=== PATIENT | female | born 1965 | race Caucasian/White ===

== ENCOUNTER 2018-09-05 00:37 | Emergency (ER) | payer SELFPAY ==
[~2018-09-05] VITALS: Ht 170.2 cm; Wt 54.1 kg
[2018-09-05] MEDS: KETOROLAC TROMETHAMINE 30 MG/ML VIAL IM ONE (01:24)
[2018-09-05] MEDS: LIDOCAINE 5% TRANSDERMAL PATCH TD ONE (01:25)
[2018-09-05 03:04] VITALS: BP 123/74
[2018-09-05] MEDS ORDERED: htn PO (10:39)
[2018-09-05 13:39] LABS: AMPHET/METH SCREEN,URINE POSITIVE (NEGATIVE); BARBITURATE SCREEN, URINE NEGATIVE (NEGATIVE); BENZODIAZEPINES SCREEN,URINE NEGATIVE (NEGATIVE); CANNABINOID SCREEN,URINE POSITIVE (NEGATIVE); COCAINE SCREEN,URINE NEGATIVE (NEGATIVE); METHADONE SCREEN, URINE NEGATIVE (NEGATIVE); OPIATE SCREEN,URINE NEGATIVE (NEGATIVE)
[2018-09-05 13:41] LABS: PHENCYCLIDINE SCREEN,URINE NEGATIVE (NEGATIVE)
[2018-09-05 13:43] LABS: APPEARANCE,URINE CLEAR (CLEAR); BILIRUBIN,URINE NEGATIVE (NEGATIVE); GLUCOSE, URINE (UA) NEGATIVE (NEGATIVE); KETONES,URINE NEGATIVE (NEGATIVE); LEUKOCYTE ESTERASE ,URINE NEGATIVE (NEGATIVE); NITRATE,URINE NEGATIVE (NEGATIVE); OCCULT BLOOD,URINE NEGATIVE (NEGATIVE); PH,URINE 6.5 (5.0-8.0); PROTEIN,URINE NEGATIVE (NEGATIVE); UROBILINOGEN,URINE 0.2 mg/dL (<=1.0)
[2018-09-05 13:47] LABS: BACTERIA,URINE None Seen /HPF (None Seen); RBC,URINE None Seen /HPF (0-2); SQUAMOUS EPITHELIAL CELL,UR Few /LPF (None Seen); WBC,URINE 0-2 /HPF (0-5)
== END 2018-09-05 03:56 | disposition home or self-care (01) ==
LOC: EMS 00:39
DX: G89.29 Other chronic pain (principal); M54.5 Low back pain; R21 Rash and other nonspecific skin eruption; F17.210 Nicotine dependence, cigarettes, uncomplicated; Z59.0 Homelessness
CPT/HCPCS: 80307; 81001; 84703; 96372; 99283; J1885

== ENCOUNTER 2018-09-05 10:33 | Emergency (ER) | payer SELFPAY ==
[~2018-09-05] VITALS: Ht 154.9 cm; Wt 54.5 kg
[2018-09-05] MEDS ORDERED: htn PO (10:39)
[2018-09-05 13:16] LABS: BASOPHILS % (AUTO) 1.2 % (0.0-2.0); EOSINOPHILS % (AUTO) 1.7 % (1.0-6.0); HEMATOCRIT 38.6 % (36-46); HEMOGLOBIN 12.9 g/dL (12.0-16.0); LYMPHOCYTES # (AUTO) 2.2 K/uL (1.0-4.8); LYMPHOCYTES % (AUTO) 26.8 % (22.0-44.0); MEAN CORPUSCULAR HEMOGLOBIN 32.1 pg (26.0-34.0); MEAN CORPUSCULAR HGB CONC 33.3 G/dL (31.0-37.0); MEAN CORPUSCULAR VOLUME 96 fL (80-100); MONOCYTES # (AUTO) 0.5 K/uL (0.1-1.0); MONOCYTES % (AUTO) 6.2 % (2.0-9.0); NEUTROPHILS # (AUTO) 5.4 K/uL (1.8-7.7); NEUTROPHILS % (AUTO) 64.1 % (40.0-70.0); PLATELET COUNT (AUTO) 409 K/uL (150-450); RED CELL DISTRIBUTION WIDTH 13.1 % (11.5-14.5)
[2018-09-05 13:24] LABS: ANION GAP 9 mmol/L (8-16); CALCIUM, TOTAL 8.9 mg/dL (8.8-10.5); CARBON DIOXIDE 25 mmol/L (22-29); CHLORIDE 103 mmol/L (98-107); CREATININE 0.53 mg/dL (0.60-1.30); GLOMERULAR FILTR. RATE CALC > 60 mL/min (>60); GLUCOSE,RANDOM 80 mg/dL (70-110); POTASSIUM 3.9 mmol/L (3.5-5.1); SODIUM SERUM 137 mmol/L (136-145); UREA NITROGEN, BLOOD 17 mg/dL (7-18)
[2018-09-05 13:31] LABS: ALANINE AMINOTRANSFERASE 26 U/L (12-78); ALBUMIN 3.7 g/dL (3.4-5.0); ALKALINE PHOSPHATASE 78 U/L (46-116); ASPARTATE AMINOTRANSFERASE 21 U/L (15-37); BILIRUBIN,TOTAL 0.2 mg/dL (0.1-1.0); LIPASE 173 U/L (73-393)
[2018-09-05] MEDS: PROMETHAZINE HCL 25 MG TABLET PO ONE (14:50)
[2018-09-05] MEDS: HALOPERIDOL LACTATE 5 MG/ML VIAL IM ONE (16:01)
[2018-09-05 17:25] VITALS: BP 138/90
== END 2018-09-05 17:30 | disposition home or self-care (01) ==
LOC: EMS 10:34
DX: R11.0 Nausea (principal); F31.9 Bipolar disorder, unspecified; F12.10 Cannabis abuse, uncomplicated; F17.210 Nicotine dependence, cigarettes, uncomplicated; Z88.0 Allergy status to penicillin; Z88.1 Allergy status to other antibiotic agents; Z88.5 Allergy status to narcotic agent; Z88.8 Allergy status to other drugs, medicaments and biological substances; Z59.0 Homelessness
CPT/HCPCS: 36415; 80053; 83690; 84484; 85025; 93005; 99284; 99406; J1630

== ENCOUNTER 2018-09-25 22:50 | Inpatient (IN) | payer BC, MEDICAID ==
[~2018-09-25] VITALS: Ht 157.5 cm; Wt 54.5 kg
[~2018-09-25 22:50] MED LIST: htn PO
[2018-09-26 02:17] LABS: AMPHET/METH SCREEN,URINE NEGATIVE (NEGATIVE); BARBITURATE SCREEN, URINE NEGATIVE (NEGATIVE); BENZODIAZEPINES SCREEN,URINE NEGATIVE (NEGATIVE); CANNABINOID SCREEN,URINE POSITIVE (NEGATIVE); COCAINE SCREEN,URINE NEGATIVE (NEGATIVE); METHADONE SCREEN, URINE NEGATIVE (NEGATIVE); OPIATE SCREEN,URINE NEGATIVE (NEGATIVE)
[2018-09-26 02:24] LABS: PHENCYCLIDINE SCREEN,URINE NEGATIVE (NEGATIVE)
[2018-09-26] MEDS ORDERED: KETOROLAC TROMETHAMINE 60 MG/2 ML VIAL IM ONE (04:45)
[2018-09-26] MEDS ORDERED: QUET100T PO (06:07)
[2018-09-26] MEDS ORDERED: NABU750 PO (06:07)
[2018-09-26] MEDS ORDERED: CLON-570 PO (06:07)
[2018-09-26] MEDS ORDERED: AMPH20CA PO (06:07)
[2018-09-26] MEDS ORDERED: ONDA4 PO (06:07)
[2018-09-26] MEDS: LORazepam 2 MG TABLET PO PRN ×3 (06:34→16:06)
[2018-09-26 07:53] LABS: APPEARANCE,URINE TURBID (CLEAR); BILIRUBIN,URINE NEGATIVE (NEGATIVE); GLUCOSE, URINE (UA) NEGATIVE (NEGATIVE); KETONES,URINE 15 mg/dL (NEGATIVE); LEUKOCYTE ESTERASE ,URINE NEGATIVE (NEGATIVE); NITRATE,URINE NEGATIVE (NEGATIVE); OCCULT BLOOD,URINE NEGATIVE (NEGATIVE); PROTEIN,URINE NEGATIVE (NEGATIVE); UROBILINOGEN,URINE 0.2 mg/dL (<=1.0)
[2018-09-26 10:15] VITALS: BP 144/102
[2018-09-26] MEDS ORDERED: CloNIDine HCL 0.1 MG TABLET PO PRN (13:30)
[2018-09-26] MEDS ORDERED: MAG HYDROX/AL HYDROX/SIMETH ES 30 ML SUSPENSION UDCUP PO PRN (13:30)
[2018-09-26] MEDS ORDERED: ALBUTEROL SULFATE HFA 90 MCG/PUFF 8 GM INHALER IH PRN (13:30)
[2018-09-26] MEDS ORDERED: PETROLATUM,WHITE 71 GM JELLY TP PRN (13:30)
[2018-09-26] MEDS ORDERED: LOPERAMIDE HCL 2 MG CAPSULE PO PRN (13:30)
[2018-09-26] MEDS ORDERED: ONDANSETRON HCL 4 MG TABLET PO PRN (13:30)
[2018-09-26] MEDS ORDERED: GuaiFENesin/D-METHORPHAN [SUGAR-FREE] 200-20MG/10 ML SYRUP UDCUP PO PRN (13:30)
[2018-09-26] MEDS ORDERED: DOCUSATE SODIUM 100 MG CAPSULE PO PRN (13:30)
[2018-09-26 16:06] VITALS: BP 133/99
[2018-09-26] MEDS: IBUPROFEN 400 MG TABLET PO PRN (16:06)
[2018-09-26] MEDS: QUEtiapine FUMARATE 100 MG TABLET PO SCH (16:06)
[2018-09-26] MEDS: SERTRALINE HCL 50 MG TABLET PO SCH (20:39)
[2018-09-27 06:02] VITALS: BP 149/104
[2018-09-27] MEDS: IBUPROFEN 400 MG TABLET PO PRN ×2 (06:08→16:40)
[2018-09-27] MEDS: LORazepam 2 MG TABLET PO PRN ×2 (06:08→12:24)
[2018-09-27 08:00] VITALS: BP 149/97
[2018-09-27] MEDS: QUEtiapine FUMARATE 100 MG TABLET PO SCH ×2 (09:11→16:39)
[2018-09-27 12:21] VITALS: BP 172/104
[2018-09-27 14:01] VITALS: BP 130/86
[2018-09-27 16:40] VITALS: BP 133/83
[2018-09-27] MEDS: SERTRALINE HCL 50 MG TABLET PO SCH (20:37)
[2018-09-28 02:45] VITALS: BP 144/81
[2018-09-28] MEDS: IBUPROFEN 400 MG TABLET PO PRN ×2 (02:59→11:49)
[2018-09-28] MEDS: ACETAMINOPHEN 325 MG TABLET PO PRN ×2 (06:45→17:12)
[2018-09-28] MEDS: LORazepam 2 MG TABLET PO PRN ×3 (06:45→17:12)
[2018-09-28] MEDS: QUEtiapine FUMARATE 100 MG TABLET PO SCH ×2 (07:41→17:51)
[2018-09-28] MEDS: NICOTINE 14 MG/24 HOUR PATCH TD PRN (07:42)
[2018-09-28 10:30] VITALS: BP 148/86
[2018-09-28] MEDS: MAGNESIUM HYDROXIDE SUSPENSION 30 ML UDCUP PO PRN (16:12)
[2018-09-28 16:50] VITALS: BP 125/91
[2018-09-28] MEDS: SERTRALINE HCL 50 MG TABLET PO SCH (21:45)
[2018-09-29 02:30] VITALS: BP 154/101
[2018-09-29] MEDS: IBUPROFEN 400 MG TABLET PO PRN (02:32)
[2018-09-29] MEDS: LORazepam 2 MG TABLET PO PRN ×3 (02:32→12:32)
[2018-09-29 07:10] VITALS: BP 160/110
[2018-09-29] MEDS: QUEtiapine FUMARATE 100 MG TABLET PO SCH ×3 (08:23→17:06)
[2018-09-29] MEDS: HALOPERIDOL 5 MG TABLET PO PRN (08:24)
[2018-09-29] MEDS ORDERED: CloNIDine HCL 0.1 MG TABLET PO ONE (09:00)
[2018-09-29 09:04] VITALS: BP 153/106
[2018-09-29] MEDS: NICOTINE 14 MG/24 HOUR PATCH TD PRN (09:04)
[2018-09-29 12:30] VITALS: BP 117/77
[2018-09-29 17:22] VITALS: BP 129/87
[2018-09-29] MEDS: SERTRALINE HCL 50 MG TABLET PO SCH (21:01)
[2018-09-29] MEDS: ZOLPIDEM TARTRATE 10 MG TABLET PO PRN (21:02)
[2018-09-30] MEDS: LORazepam 2 MG TABLET PO PRN ×2 (05:30→13:02)
[2018-09-30] MEDS: IBUPROFEN 400 MG TABLET PO PRN (05:30)
[2018-09-30 05:31] VITALS: BP 143/68
[2018-09-30] MEDS: MAGNESIUM HYDROXIDE SUSPENSION 30 ML UDCUP PO PRN (05:40)
[2018-09-30] MEDS: QUEtiapine FUMARATE 100 MG TABLET PO SCH ×3 (08:47→16:58)
[2018-09-30] MEDS: HALOPERIDOL 5 MG TABLET PO PRN (08:48)
[2018-09-30] MEDS: NICOTINE 14 MG/24 HOUR PATCH TD PRN (08:49)
[2018-09-30 10:26] VITALS: BP 150/95
[2018-09-30 17:14] VITALS: BP 136/84
[2018-09-30] MEDS: SERTRALINE HCL 50 MG TABLET PO SCH (20:27)
[2018-09-30] MEDS: ZOLPIDEM TARTRATE 10 MG TABLET PO PRN (20:29)
[2018-10-01 02:25] VITALS: BP 155/95
[2018-10-01] MEDS: HALOPERIDOL 5 MG TABLET PO PRN ×2 (02:27→13:33)
[2018-10-01] MEDS: IBUPROFEN 400 MG TABLET PO PRN ×2 (02:28→13:33)
[2018-10-01] MEDS: LORazepam 2 MG TABLET PO PRN ×3 (02:28→20:21)
[2018-10-01] MEDS: QUEtiapine FUMARATE 100 MG TABLET PO SCH ×3 (08:34→17:50)
[2018-10-01] MEDS: NICOTINE 14 MG/24 HOUR PATCH TD PRN (08:36)
[2018-10-01 09:40] VITALS: BP 126/93
[2018-10-01 13:33] VITALS: BP 131/107
[2018-10-01 17:34] VITALS: BP 119/85
[2018-10-01] MEDS: SERTRALINE HCL 50 MG TABLET PO SCH (20:18)
[2018-10-01] MEDS: ZOLPIDEM TARTRATE 10 MG TABLET PO PRN (20:21)
[2018-10-02] MEDS: MAGNESIUM HYDROXIDE SUSPENSION 30 ML UDCUP PO PRN (05:23)
[2018-10-02 05:24] VITALS: BP 124/82
[2018-10-02] MEDS: IBUPROFEN 400 MG TABLET PO PRN (05:24)
[2018-10-02] MEDS: LORazepam 2 MG TABLET PO PRN ×3 (05:24→14:57)
[2018-10-02] MEDS: HALOPERIDOL 5 MG TABLET PO PRN (06:51)
[2018-10-02 08:05] VITALS: BP 147/91
[2018-10-02] MEDS: QUEtiapine FUMARATE 100 MG TABLET PO SCH ×3 (08:11→17:32)
[2018-10-02] MEDS: NICOTINE 14 MG/24 HOUR PATCH TD PRN (08:15)
[2018-10-02 17:10] VITALS: BP 137/78
[2018-10-02] MEDS: SERTRALINE HCL 50 MG TABLET PO SCH (20:25)
[2018-10-02] MEDS: ZOLPIDEM TARTRATE 10 MG TABLET PO PRN (21:01)
[2018-10-03 02:31] VITALS: BP 126/90
[2018-10-03] MEDS: IBUPROFEN 400 MG TABLET PO PRN ×2 (02:36→14:32)
[2018-10-03] MEDS: LORazepam 2 MG TABLET PO PRN ×2 (02:36→14:32)
[2018-10-03] MEDS: HALOPERIDOL 5 MG TABLET PO PRN (05:47)
[2018-10-03] MEDS: ACETAMINOPHEN 325 MG TABLET PO PRN (05:47)
[2018-10-03] MEDS: QUEtiapine FUMARATE 100 MG TABLET PO SCH ×3 (08:59→17:29)
[2018-10-03] MEDS: NICOTINE 14 MG/24 HOUR PATCH TD PRN (09:00)
[2018-10-03 10:45] VITALS: BP 137/82
[2018-10-03] MEDS: SERTRALINE HCL 50 MG TABLET PO SCH (20:25)
[2018-10-03 21:47] VITALS: BP 111/77
[2018-10-04 00:04] VITALS: BP 112/77
[2018-10-04] MEDS: LORazepam 2 MG TABLET PO PRN ×3 (00:06→10:30)
[2018-10-04] MEDS: ZOLPIDEM TARTRATE 10 MG TABLET PO PRN (00:06)
[2018-10-04] MEDS: IBUPROFEN 400 MG TABLET PO PRN ×2 (00:06→08:45)
[2018-10-04] MEDS: HALOPERIDOL 5 MG TABLET PO PRN ×2 (05:25→10:30)
[2018-10-04 08:44] VITALS: BP 127/93
[2018-10-04 08:45] VITALS: BP 126/94
[2018-10-04] MEDS: QUEtiapine FUMARATE 100 MG TABLET PO SCH ×3 (08:45→13:08)
[2018-10-04 09:45] VITALS: BP 124/92
[2018-10-04] MEDS: QUEtiapine FUMARATE 300 MG TABLET PO SCH (16:58)
[2018-10-04 18:17] VITALS: BP 110/63
[2018-10-04] MEDS: SERTRALINE HCL 50 MG TABLET PO SCH (20:34)
[2018-10-05 04:58] VITALS: BP 130/90
[2018-10-05] MEDS: IBUPROFEN 400 MG TABLET PO PRN (04:59)
[2018-10-05] MEDS: LORazepam 2 MG TABLET PO PRN ×2 (04:59→11:10)
[2018-10-05] MEDS: ACETAMINOPHEN 325 MG TABLET PO PRN (05:54)
[2018-10-05] MEDS: HALOPERIDOL 5 MG TABLET PO PRN (05:54)
[2018-10-05 05:55] VITALS: BP 135/90
[2018-10-05 08:22] VITALS: BP 117/68
[2018-10-05] MEDS: QUEtiapine FUMARATE 100 MG TABLET PO SCH ×2 (08:45→12:23)
[2018-10-05] MEDS: NICOTINE 14 MG/24 HOUR PATCH TD PRN (09:05)
[2018-10-05] MEDS: QUEtiapine FUMARATE 300 MG TABLET PO SCH (16:36)
[2018-10-05 19:00] VITALS: BP 106/65
[2018-10-05] MEDS: SERTRALINE HCL 50 MG TABLET PO SCH (20:28)
[2018-10-06] MEDS: ZOLPIDEM TARTRATE 10 MG TABLET PO PRN (00:13)
[2018-10-06] MEDS: IBUPROFEN 400 MG TABLET PO PRN ×2 (00:14→08:53)
[2018-10-06 00:15] VITALS: BP 115/77
[2018-10-06] MEDS: LORazepam 2 MG TABLET PO PRN ×3 (04:18→13:21)
[2018-10-06] MEDS: ACETAMINOPHEN 325 MG TABLET PO PRN (06:23)
[2018-10-06] MEDS: MAGNESIUM HYDROXIDE SUSPENSION 30 ML UDCUP PO PRN (06:23)
[2018-10-06 08:14] VITALS: BP 132/87
[2018-10-06] MEDS: QUEtiapine FUMARATE 100 MG TABLET PO SCH ×2 (08:15→12:03)
[2018-10-06 08:40] VITALS: BP 145/83
[2018-10-06] MEDS ORDERED: QUET300T2 PO (12:04)
[2018-10-06] MEDS ORDERED: SERT50TA12 PO (12:04)
[2018-10-06] MEDS: QUEtiapine FUMARATE 300 MG TABLET PO SCH (16:20)
== END 2018-10-06 17:45 | disposition home or self-care (01) | DRG 885 ==
LOC: EMS 22:50 → 3EI 09-26 06:43
PROVIDERS: ADMIT Psychiatry & Neurology Psychiatry; ATTEND Psychiatry & Neurology Psychiatry
DX: F31.4 Bipolar disorder, current episode depressed, severe, without psychotic features (principal); R45.851 Suicidal ideations; F19.90 Other psychoactive substance use, unspecified, uncomplicated; F41.9 Anxiety disorder, unspecified; F90.9 Attention-deficit hyperactivity disorder, unspecified type; G47.00 Insomnia, unspecified; G89.29 Other chronic pain; Z59.0 Homelessness; Z91.19 Patient's noncompliance with other medical treatment and regimen; Z88.0 Allergy status to penicillin; Z88.1 Allergy status to other antibiotic agents; Z88.8 Allergy status to other drugs, medicaments and biological substances; Z28.21 Immunization not carried out because of patient refusal; Z88.5 Allergy status to narcotic agent; Z79.899 Other long term (current) drug therapy
CPT/HCPCS: 96372; 99406; J1885